=== PATIENT | male | born 1995 | race Caucasian/White ===

== ENCOUNTER 2023-05-27 04:07 | Inpatient (IN) | payer OTHER ==
[2023-05-27 04:14] VITALS: BMI 23.4
[2023-05-27] MEDS ORDERED: LACTATED RINGERS SOLUTION 1000 ML INFUS.BAG IV ONE (04:46)
[2023-05-27 04:55] LABS: EPI CELLS 0 /uL (0-25.1); HYALINE CASTS 0 /uL (0-3.1); URINE APPEARANCE CLEAR; URINE BILIRUBIN 3+ (NEGATIVE); URINE COLOR DK YELLOW; URINE GLUCOSE (UA) NEGATIVE (NEGATIVE); URINE KETONE TRACE (NEGATIVE); URINE LEUK ESTERASE TRACE (NEGATIVE); URINE NITRITE POSITIVE (NEGATIVE); URINE PROTEIN 1+ (NEGATIVE); URINE RBC 28 /uL (0-23.9); URINE WBC 3 /uL (0-25.8)
[2023-05-27 05:58] LABS: BASO % 1.2 % (0-2.0); EOS % 0.6 % (0-4.5); HEMATOCRIT 46.9 % (35.4-49); HEMOGLOBIN 15.8 GM/dL (11.7-16.9); LYMPH % 45.8 % (8-40); MCH 29.6 pg (25.7-33.7); MCHC 33.8 g/dl (32.0-35.9); MEAN CELL VOLUME 87.6 fl (80-96); MEAN PLT VOLUME 9.6 fl (7.5-11.1); MONO % 10.3 % (3.8-10.2); NEUT % 42.1 % (42.8-82.8); PLATELET COUNT 207 10^3/uL (134-434); RBC 5.35 M/mm3 (4.00-5.60); RDW 15.8 % (11.9-15.9)
[2023-05-27 06:18] LABS: POTASSIUM 3.7 mmol/L (3.5-5.1)
[2023-05-27 06:20] LABS: CALCIUM 7.7 mg/dL (8.5-10.1)
[2023-05-27 06:21] LABS: ALBUMIN 3.2 g/dl (3.4-5.0); BLOOD UREA NITROGEN 7.8 mg/dL (7-18)
[2023-05-27 06:24] LABS: CREATININE 1.2 mg/dL (0.55-1.3)
[2023-05-27 06:26] LABS: TOT PROT 6.8 g/dl (6.4-8.2)
[2023-05-27 06:42] LABS: INR 1.3 (0.83-1.09)
[2023-05-27 06:45] LABS: ACTIVATED PTT 35.3 SECONDS (25.2-36.5)
[2023-05-27 08:15] LABS: BILIRUBIN,DIRECT 5.9 mg/dL (0.0-0.2)
[2023-05-27 09:26] LABS: URINE BACTERIA 3 /uL (0-1359)
[2023-05-27 12:05] LABS: HIV INTERPRETATION NEGATIVE (NEGATIVE)
[2023-05-27 13:03] LABS: BASO % 1.1 % (0-2.0); EOS % 0.6 % (0-4.5); HEMATOCRIT 42.1 % (35.4-49); HEMOGLOBIN 14.2 GM/dL (11.7-16.9); LYMPH % 38.4 % (8-40); MCH 29.5 pg (25.7-33.7); MCHC 33.9 g/dl (32.0-35.9); MEAN PLT VOLUME 9.2 fl (7.5-11.1); MONO % 16.5 % (3.8-10.2); NEUT % 43.4 % (42.8-82.8); PLATELET COUNT 188 10^3/uL (134-434); RBC 4.83 M/mm3 (4.00-5.60); RDW 15.5 % (11.9-15.9); WHITE BLOOD COUNT 3.3 K/mm3 (4.0-10.0)
[2023-05-27 13:10] LABS: INR 1.47 (0.83-1.09)
[2023-05-27 13:19] LABS: POTASSIUM 3.6 mmol/L (3.5-5.1)
[2023-05-27 13:21] LABS: ALBUMIN 2.8 g/dl (3.4-5.0); BLOOD UREA NITROGEN 6.9 mg/dL (7-18); CALCIUM 7.7 mg/dL (8.5-10.1)
[2023-05-27 13:26] LABS: BILIRUBIN,TOTAL 6.8 mg/dL (0.2-1)
[2023-05-27] MEDS ORDERED: ACETYLCYSTEINE INJECTION 20% 11,400 MG in DEXTROSE 5%-WATER - 250 ML IVPB ONE (14:30)
[2023-05-27 14:49] LABS: METHADONE, UR NEGATIVE (NEGATIVE); URINE AMPHETAMINES NEGATIVE (NEGATIVE)
[2023-05-27 14:50] LABS: OPIATES, URI NEGATIVE (NEGATIVE); PHENCYCLIDINE,URINE NEGATIVE (NEGATIVE); URINE BARBITURATES NEGATIVE (NEGATIVE)
[2023-05-27 14:56] LABS: COCAINE, UR POSITIVE (NEGATIVE); URINE BENZODIAZEPINES NEGATIVE (NEGATIVE)
[2023-05-27] MEDS: LACTATED RINGERS SOLUTION 1,000 ML/1,000 ML INFUS.BAG IV SCH (14:57)
[2023-05-27] MEDS ORDERED: ACETYLCYSTEINE INJECTION 20% 3,800 MG in DEXTROSE 5%-WATER - 500 ML IVPB ONE (15:30)
[2023-05-27] MEDS ORDERED: ONDANSETRON 4 MG/2 ML VIAL ONE (17:05)
[2023-05-27] MEDS: ONDANSETRON 4 MG/2 ML VIAL IVPUSH PRN (17:28)
[2023-05-27] MEDS ORDERED: ACETYLCYSTEINE INJECTION 20% 7,600 MG in DEXTROSE 5%-WATER - 1,000 ML IVPB ONE (19:30)
[2023-05-28 11:13] LABS: INR 1.6 (0.83-1.09); PROTHROMBIN TIME (PATIENT) 18.5 SEC (9.7-13.0)
[2023-05-28 11:21] LABS: POTASSIUM 3.4 mmol/L (3.5-5.1)
[2023-05-28 11:27] LABS: ALBUMIN 2.5 g/dl (3.4-5.0); BLOOD UREA NITROGEN 5.1 mg/dL (7-18); CALCIUM 7.6 mg/dL (8.5-10.1); MAGNESIUM 2.2 mg/dL (1.8-2.4)
[2023-05-28 11:28] LABS: MCH 29.2 pg (25.7-33.7); MCHC 33.3 g/dl (32.0-35.9); MEAN CELL VOLUME 87.7 fl (80-96); MEAN PLT VOLUME 9.8 fl (7.5-11.1); PLATELET COUNT 192 10^3/uL (134-434); RBC 4.79 M/mm3 (4.00-5.60); RDW 15.9 % (11.9-15.9); WHITE BLOOD COUNT 3.4 K/mm3 (4.0-10.0)
[2023-05-28 11:31] LABS: PHOSPHOROUS 1.7 mg/dL (2.5-4.9)
[2023-05-28 11:32] LABS: BILIRUBIN,TOTAL 7.4 mg/dL (0.2-1); TOT PROT 5.7 g/dl (6.4-8.2)
[2023-05-28 11:52] LABS: ANISOCYTOSIS 1+; MACROCYTOSIS 0
[2023-05-28] MEDS: LACTATED RINGERS SOLUTION 1,000 ML/1,000 ML INFUS.BAG IV SCH ×2 (13:54→16:03)
[2023-05-28] MEDS ORDERED: PHYTONADIONE 10 MG/1 ML AMP IVPB ONE (15:51)
[2023-05-28] MEDS ORDERED: NAPH,MB-DB/K PH,MBDB POWDER PACKET PO ONE ×2 (17:00→21:00)
[2023-05-28] MEDS ORDERED: POTASSIUM CHLORIDE TABS 20 MEQ TABLET.ER (FP) PO ONE (17:02)
[2023-05-29] MEDS: LACTATED RINGERS SOLUTION 1,000 ML/1,000 ML INFUS.BAG IV SCH ×3 (02:38→23:02)
[2023-05-29 09:57] LABS: HEMATOCRIT 42.4 % (35.4-49); HEMOGLOBIN 14.5 GM/dL (11.7-16.9); MCH 29.8 pg (25.7-33.7); MCHC 34.3 g/dl (32.0-35.9); MEAN CELL VOLUME 86.9 fl (80-96); MEAN PLT VOLUME 9.3 fl (7.5-11.1); PLATELET COUNT 198 10^3/uL (134-434); RBC 4.88 M/mm3 (4.00-5.60); RDW 16.3 % (11.9-15.9); WHITE BLOOD COUNT 4.3 K/mm3 (4.0-10.0)
[2023-05-29 10:08] LABS: INR 1.1 (0.83-1.09); PROTHROMBIN TIME (PATIENT) 12.8 SEC (9.7-13.0)
[2023-05-29 10:47] LABS: ANISOCYTOSIS 1+; MACROCYTOSIS 0
[2023-05-29 10:55] LABS: POTASSIUM 4.2 mmol/L (3.5-5.1)
[2023-05-29 10:56] LABS: CALCIUM 7.9 mg/dL (8.5-10.1)
[2023-05-29 10:58] LABS: ALBUMIN 2.6 g/dl (3.4-5.0); BLOOD UREA NITROGEN 4.1 mg/dL (7-18); MAGNESIUM 1.9 mg/dL (1.8-2.4)
[2023-05-29 11:00] LABS: PHOSPHOROUS 2.5 mg/dL (2.5-4.9)
[2023-05-29 11:02] LABS: TOT PROT 5.9 g/dl (6.4-8.2)
[2023-05-29 11:03] LABS: BILIRUBIN,TOTAL 9.2 mg/dL (0.2-1)
[2023-05-29 13:08] LABS: CMV IgM < 30.0 AU/mL (0.0-29.9)
[2023-05-29 14:48] VITALS: RESP 18
[2023-05-29] MEDS: ONDANSETRON 4 MG/2 ML VIAL IVPUSH PRN ×2 (15:37→20:39)
[2023-05-30] MEDS ORDERED: MELATONIN 5 MG TABLETS PO PRN (01:24)
[2023-05-30] MEDS: LACTATED RINGERS SOLUTION 1,000 ML/1,000 ML INFUS.BAG IV SCH ×2 (07:30→17:29)
[2023-05-30 13:31] VITALS: BP 128/69; PULSE 84; TEMP 98.5
[2023-05-30 14:33] LABS: HEMATOCRIT 40.8 % (35.4-49); HEMOGLOBIN 13.8 GM/dL (11.7-16.9); MCH 29.9 pg (25.7-33.7); MCHC 33.9 g/dl (32.0-35.9); MEAN CELL VOLUME 88.2 fl (80-96); MEAN PLT VOLUME 8.5 fl (7.5-11.1); PLATELET COUNT 219 10^3/uL (134-434); RBC 4.63 M/mm3 (4.00-5.60); RDW 16.2 % (11.9-15.9); WHITE BLOOD COUNT 3.2 K/mm3 (4.0-10.0)
[2023-05-30 14:44] LABS: INR 1.08 (0.83-1.09); PROTHROMBIN TIME (PATIENT) 12.5 SEC (9.7-13.0)
[2023-05-30 14:57] LABS: ANISOCYTOSIS 1+; MACROCYTOSIS 0
[2023-05-30 15:06] LABS: POTASSIUM 3.8 mmol/L (3.5-5.1)
[2023-05-30 15:07] LABS: BLOOD UREA NITROGEN 5.6 mg/dL (7-18); MAGNESIUM 2.2 mg/dL (1.8-2.4)
[2023-05-30 15:08] LABS: ALBUMIN 2.4 g/dl (3.4-5.0)
[2023-05-30 15:10] LABS: BILIRUBIN,DIRECT 7.8 mg/dL (0.0-0.2)
[2023-05-30 15:12] LABS: PHOSPHOROUS 2.3 mg/dL (2.5-4.9)
[2023-05-30 15:13] LABS: BILIRUBIN,TOTAL 8.8 mg/dL (0.2-1); TOT PROT 5.6 g/dl (6.4-8.2)
[2023-05-30 15:31] LABS: CALCIUM 7.6 mg/dL (8.5-10.1)
== END 2023-05-30 18:54 | disposition home or self-care (01) | DRG 279 ==
LOC: JER 04:07 → UNDOADMOB 12:15 → INTOOBSV 12:15 → JERBED 12:15 → J6S 14:41 → OBSVTOIN 05-29 09:53
PROVIDERS: ADMIT Internal Medicine; ATTEND Internal Medicine
DX: K72.00 Acute and subacute hepatic failure without coma (principal); B17.9 Acute viral hepatitis, unspecified; R79.89 Other specified abnormal findings of blood chemistry; B15.9 Hepatitis A without hepatic coma; F12.90 Cannabis use, unspecified, uncomplicated
CPT/HCPCS: 36415; 74181-TC; 76705-TC; 80053; 80307; 81003; 82248; 82550; 82728; 82962; 83516; 83540; 83550; 83605; 83690; 83735; 84100; 85025; 85610; 85730; 86038; 86140; 86593; 86644; 86645; 86695; 86696; 86704; 86705; 86708; 86709; 86780; 86803; 86850; 86900; 86901; 87086; 87340; 87389; 87517; 87522; 87529; 87536; 87799; 93975; 99285-25; G0378

== ENCOUNTER 2023-12-29 20:29 | Emergency (ER) | payer SELFPAY ==
[2023-12-29 20:33] VITALS: RESP 18; BMI 23.7
[2023-12-29 21:59] LABS: BASO % 0.5 % (0-2.0); EOS % 0.5 % (0-4.5); HEMATOCRIT 46.7 % (35.4-49); HEMOGLOBIN 16.5 GM/dL (11.7-16.9); LYMPH % 32.9 % (8-40); MCH 31.4 pg (25.7-33.7); MCHC 35.3 g/dl (32.0-35.9); MEAN CELL VOLUME 89.1 fl (80-96); MEAN PLT VOLUME 7.6 fl (7.5-11.1); MONO % 7.5 % (3.8-10.2); NEUT % 58.6 % (42.8-82.8); PLATELET COUNT 322 10^3/uL (134-434); RBC 5.25 M/mm3 (4.00-5.60); RDW 13.5 % (11.9-15.9); WHITE BLOOD COUNT 8.1 K/mm3 (4.0-10.0)
[2023-12-29 22:21] LABS: COCAINE, UR NEGATIVE (NEGATIVE); METHADONE, UR NEGATIVE (NEGATIVE); OPIATES, URI NEGATIVE (NEGATIVE); PHENCYCLIDINE,URINE NEGATIVE (NEGATIVE); URINE AMPHETAMINES NEGATIVE (NEGATIVE); URINE BARBITURATES NEGATIVE (NEGATIVE); URINE BENZODIAZEPINES NEGATIVE (NEGATIVE)
[2023-12-29 22:24] LABS: ALBUMIN 4.2 g/dl (3.4-5.0); BLOOD UREA NITROGEN 14.2 mg/dL (7-18); CALCIUM 9.4 mg/dL (8.5-10.1)
[2023-12-29 22:29] LABS: BILIRUBIN,TOTAL 0.5 mg/dL (0.2-1); TOT PROT 8.4 g/dl (6.4-8.2)
[2023-12-30] MEDS ORDERED: ALPRAZolam 0.25 MG TABLET ONE (01:24)
[2023-12-30] MEDS: ALPRAZolam 0.25 MG TABLET PO PRN (01:26)
[2023-12-30 10:07] VITALS: BP 144/89; PULSE 87; TEMP 98
== END 2023-12-30 10:16 | disposition home or self-care (01) ==
LOC: JER 20:29
DX: R45.851 Suicidal ideations (principal)
CPT/HCPCS: 36415; 80053; 80307; 85025; 93005; 93010; 99284-25

== ENCOUNTER 2024-06-07 15:21 | Emergency (ER) | payer OTHER ==
[2024-06-07 15:58] VITALS: BP 115/74; PULSE 86; RESP 17; TEMP 97.9; BMI 224.8
[2024-06-07] MEDS ORDERED: ACETAMINOPHEN 500 MG TABLET (FP) ONE (17:10)
[2024-06-07] MEDS ORDERED: KETOROLAC TROMETHAMINE 30 MG/1 ML VIAL ONE (17:10)
[2024-06-07] MEDS ORDERED: LIDOCAINE 4% PATCH TP ONE (17:10)
[2024-06-07] MEDS: KETOROLAC TROMETHAMINE 30 MG/1 ML VIAL IM ONE (17:23)
[2024-06-07] MEDS: LIDOCAINE 4% PATCH TP ONE (17:26)
[2024-06-07] MEDS: ACETAMINOPHEN 500 MG TABLET (FP) PO ONE (17:26)
[2024-06-07] MEDS ORDERED: LIDOCAINE PATCH REMOVAL MC SCH (22:00)
== END 2024-06-07 18:51 | disposition home or self-care (01) ==
LOC: JERFT 15:21
PROC: 3E0233Z Introduction of Anti-inflammatory into Muscle, Percutaneous Approach (ICD-10-PCS; principal; 2024-06-07)
DX: M54.50 Low back pain, unspecified (principal); W01.0XXA Fall on same level from slipping, tripping and stumbling without subsequent striking against object, initial encounter
CPT/HCPCS: 72100-TC-FY; 99284-25